=== PATIENT | male | born 1975 | race Caucasian/White ===

== ENCOUNTER 2024-04-23 00:43 | Emergency (ER) | payer OTHER ==
[~2024-04-23] VITALS: Ht 172.7 cm; Wt 36.3 kg
[~2024-04-23 00:43] MED LIST: ALBU90OI INH; AMOX500 PO; ARTTEAOPSB OP; Bactrim Ds Tab1 EACH PO; CEPH500 PO; CODACE30 PO; CODGUAEL PO; CRUTCH4 USE; Cleocin HCl300 MG PO; DOXY100 PO; FAMO20 PO; HYDACE5 PO; IBUP600 PO; IBUP800 PO; NAPR500; NAPR500 PO; NAPR550 PO; ONDA4 PO; OXYACE5T PO; OXYACE7.5T PO; PENVK250 PO; PENVK500 PO; PRED20 PO; RXERYTOPTH OD; RXHYDACE PO; RXNAPNA550 PO; RXNEOPOLHC AS; RXOXYACE PO; RXSULTRIDS PO; RXTRAM50 PO; SULTRIDS PO; TRAM50 PO
[2024-04-23 01:09] VITALS: BP 134/99
[2024-04-23] MEDS ORDERED: SULTRIDS PO (02:04)
== END 2024-04-23 02:14 | disposition home or self-care (01) ==
LOC: ER 00:43
DX: L03.314 Cellulitis of groin (principal); L02.214 Cutaneous abscess of groin; F17.210 Nicotine dependence, cigarettes, uncomplicated
CPT/HCPCS: 99283